=== PATIENT | female | born 1975 | race Caucasian/White ===

== ENCOUNTER 2018-05-23 11:49 | Emergency (ER) | payer MEDICAID, SELFPAY ==
[2018-05-23 11:51] VITALS: BP 138/87; PULSE 109; RESP 16; TEMP 36.3; O2SAT 99; BMI 34.8
--- NOTE | 2018-05-23 13:43 | ED.VISSUMM ---
- ER Visit Summary Date of Service: 05/23/18 Chief Complaint: [Discomfort and swelling to the left foot] History of Present Illness: The patient is a 43 F [presents the emergency department with discomfort to her left foot that she noticed today. Patient states that she woke up and her foot did not feel quite right. Patient states that she noticed some swelling over the dorsal lateral aspect of the foot. Patient denies any trauma to it. She denies any chest pain or shortness of breath.] Physical Examination: Left foot-patient has some soft tissue swelling noted between the fourth and fifth MTP joints. There is no ecchymosis or bruising. There is no obvious deformity. There is no erythema or warmth noted. Patient neurovascular intact.] Test Results: [X-rays of left foot showed no fractures only a calcaneal spur.] Emergency Department Course and Treatment: [None indicated] Treatment Plan: [Patient advised to use ibuprofen or Tylenol at home as needed for discomfort and she states that she has Percocet at home for pain. Disposition: [Discharged home in stable condition. Patient advised to follow-up with primary care physician 5-7 days.] Impression;] right foot swelling-suspect contusion or spontaneous hematoma This note was generated with [employer] dictation software. It may contain incorrect words, spelling, and punctuation that were not noted in review of the chart prior to signing ED Disposition - Plan for ED Patient: Chief Complaint: Lower Extremity Injury Referrals: Osiel Golden MD [Primary Care Provider] -
--- NOTE | 2018-05-23 13:46 | ED.DEP ---
ED Disposition - Plan for ED Patient: Chief Complaint: Lower Extremity Injury Instructions: ED Contusion Foot Referrals: Osiel Golden MD [Primary Care Provider] - 5-7 Days
== END 2018-05-23 14:10 | disposition home or self-care (01) ==
PROVIDERS: Emergency Provider Emergency Medicine; Family Provider Family Medicine; PCP Family Medicine
DX: S90.32XA Contusion of left foot, initial encounter (principal); X58.XXXA Exposure to other specified factors, initial encounter; Y93.9 Activity, unspecified; Y92.9 Unspecified place or not applicable; M54.9 Dorsalgia, unspecified; Z79.82 Long term (current) use of aspirin; Z79.899 Other long term (current) drug therapy; Z72.0 Tobacco use
CPT/HCPCS: 73630; 99282

== ENCOUNTER 2019-01-10 00:57 | Emergency (ER) | payer MEDICAID, SELFPAY ==
[2019-01-10] VITALS (10 sets, daily range): BP systolic 101–121; BP diastolic 54–70; PULSE 76–101; RESP 16–20; TEMP 36.1–36.9; O2SAT 90–97; BMI 36.1
--- NOTE | 2019-01-10 02:19 | RAD_ITS ---
STUDY: X-RAY CHEST REASON FOR EXAM: Female, 43 years old. Cough, chills. TECHNIQUE: PA and lateral chest. COMPARISON: None. FINDINGS: The lungs are clear and expanded. There is no demonstrated pleural abnormality. Normal size heart. Normal mediastinum and gracy. Normal visualized pulmonary arteries. Normal visualized aortic arch and descending thoracic aorta. Normal visualized thoracic spine. Normal visualized ribs, clavicles, and shoulders. Surgical clips base of the neck on the right. There is no demonstrated abnormality of the visualized soft tissue structures of the upper abdomen. RAD/Chest PA and Lateral IMPRESSION: No acute cardiopulmonary disease. Electronically Signed: Erwin Lowry MD at 3:28 EDT , Service support ,
[2019-01-10] MEDS: Albuterol 2.5 MG/3 ML VIAL.NEB. INHALATION (02:36)
[2019-01-10] MEDS: MethylPREDNISolone 125 MG/2 ML Vial IV (02:36)
[2019-01-10] MEDS: proMETHazine 25 MG/ML Syringe 12.5 MG IV (02:36)
[2019-01-10] MEDS: Ipratropium/Albuterol Sulfate 3 ML AMPUL.NEB INHALATION (02:36)
[2019-01-10 02:37] LABS: Absolute Lymphocyte Count 2.72 X10^3/ul (0.83-4.51); Absolute Neutrophil Count 3.9 X10^3/uL (2.0-7.7); Basophil# 0.06 X10^3/uL; Basophil% 0.8 % (0-1); Eosinophils% 1.3 % (0-5); Hematocrit 43.9 % (37-47); Hemoglobin 14.9 g/dl (12.0-15.0); Lymphocyte # 2.72 X10^3/ul (4.0); Lymphocyte % 35.1 % (19-41); Mean Corp Hgb Conc 33.9 g/gl (32-36); Mean Corpuscular Hgb 30.1 pg (27.0-32.0); Mean Corpuscular Volume 88.7 fL (81-99); Mean Platelet Vol. 10.5 fl (6.2-12.0); Monocyte# 0.93 X10^3/uL; Neutrophil # 3.92 X10^3/uL (2.7-7.7); Neutrophil % 50.5 % (47-70); POSITIVE COUNT NO; POSITIVE DIFFERENTIAL NO; POSITIVE MORPHOLOGY NO; Platelet Count 194 K/mm3 (150-450); RBC Distribution Width CV 13.2 % (11.6-14.6); RBC Distribution Width SD 42.7 fl (35.1-43.9); Red Blood Count 4.95 M/mm3 (4.2-5.4); White Blood Count 7.8 K/mm3 (4.4-11.0)
[2019-01-10 02:50] LABS: Anion Gap 6 (5-15); BUN 9 mg/dL (7-18); BUN/Creat Ratio 10.6 RATIO (10-20); Calcium,Total 8.3 mg/dL (8.5-10.1); Chloride 109 mmol/L (98-107); Creatinine, Serum 0.85 mg/dL (0.55-1.02); EST Glomerular Filtration Rate 78 mL/min (>60); Est Glom Filt Rate - Afr Amer 94 mL/min (>60); Estimated Creatinine Clearance 80.71 ml/min; Glucose 109 mg/dL (74-106); Sodium Level 138 mmol/L (136-145)
--- NOTE | 2019-01-10 04:30 | ED.VISSUMM ---
- ER Visit Summary Date of Service: 01/10/19 Chief Complaint: Fever, sore throat History of Present Illness: The patient is a 43 F who presents with a fever and sore throat. She is been sick for about 3 days. She has had a temperature up to 101. She complains of shortness of breath, nonproductive cough, sore throat, muscle and joint aches. She had a rash over her chest which is since resolved. No vomiting or diarrhea. She does have a history of asthma and COPD. Physical Examination: Afebrile vitals normal. When sleeping she did desaturate to 90% and was briefly placed on nasal cannula. Moist mucous membranes Heart regular rate and rhythm She has diminished air exchange and diffuse wheezing throughout all lung campos Abdomen soft and nontender Test Results: Rapid influenza negative. Two-view chest x-ray shows no acute process. CBC BMP unremarkable. Emergency Department Course and Treatment: She was given albuterol and Atrovent aerosols. She reports a history of nausea with albuterol so was given Phenergan. She was also given IV Solu-Medrol. With ambulation she maintained oxygen saturation of 92-94%. She is resting comfortably on reevaluation. She is still wheezing but air exchange is improved. Patient will be placed on oral prednisone and doxycycline and discharged. Treatment Plan: [] Disposition: Discharge Impression: COPD exacerbation This note was generated with [employer] dictation software. It may contain incorrect words, spelling, and punctuation that were not noted in review of the chart prior to signing ED Disposition - Plan for ED Patient: Referrals: Osiel Golden MD [Primary Care Provider] -
--- NOTE | 2019-01-10 04:32 | ED.DEP ---
ED Disposition - Plan for ED Patient: Instructions: ED COPD Flare Prescriptions: predniSONE tablet 60 mg PO DAILY #15 tab Doxycycline 100 mg PO BID #20 cap Referrals: Osiel Golden MD [Primary Care Provider] -
== END 2019-01-10 04:50 | disposition home or self-care (01) ==
PROVIDERS: Emergency Provider Emergency Medicine; Family Provider Family Medicine; PCP Family Medicine
DX: J44.1 Chronic obstructive pulmonary disease with (acute) exacerbation (principal); Z72.0 Tobacco use
CPT/HCPCS: 71046; 80048; 85025; 87804; 94640; 96374; 96375; 99284; A4216

== ENCOUNTER 2019-01-24 21:39 | Emergency (ER) | payer MEDICAID, SELFPAY ==
[2019-01-10 00:58] VITALS: BMI 36.1
[2019-01-24 21:40] VITALS: BP 121/74; PULSE 101; RESP 18; TEMP 36.7; O2SAT 98; BMI 36.1
--- NOTE | 2019-01-24 23:45 | ED.DCSUM_ITS ---
- ER Visit Summary Date of Service: 01/24/19 Chief Complaint: Abscess History of Present Illness: The patient is a 43 F who presents with an abscess to her left lower abdomen that has been getting worse over the past week. Patient states she had a doctor's appointment yesterday but forgot to mention it to her doctor. Patient states the pain feels like it is hot and stinging. Patient denies any discharge or drainage. Patient denies any fevers or chills. Patient states the pain is worse with any palpation to the area and also worse when she sits upright. Physical Examination: Vital signs are stable. Patient is afebrile. Patient is in no acute distress. Skin is warm and dry. There is edema, erythema, and tenderness over the left lower abdomen. There are 2 fluctuant areas noted. There is no active discharge or drainage. Abdomen is otherwise soft and nontender. Bowel sounds are normal. Oral mucosa is pink and moist. Neck is supple. Trachea is midline. There is no JVD noted. Cranial nerves II through XII are intact. There are no focal motor or sensory deficits noted. Emergency Department Course and Treatment: The area was cleaned and prepped in a sterile manner. The area was anesthetized 1% plain lidocaine locally. The area was incised with an 11 blade scalpel using 2 cruciate incisions. Moderate amount of purulent drainage was expressed. Patient tolerated the procedure well. Wound was left open and irrigated. Patient was given a prescription for doxycycline. Patient was instructed to follow-up with her primary care physician in 5 to 7 days for recheck. Patient understood and was agreeable with the plan. All questions were answered. Disposition: Discharge home Impression: Abdominal wall abscess This note was generated with [employer] dictation software. It may contain incorrect words, spelling, and punctuation that were not noted in review of the chart prior to signing ED Disposition - Plan for ED Patient: Disposition: Home or Assisted Living Diagnosis: Abdominal wall abscess Instructions: ED Abscess IandD Prescriptions: Doxycycline 100 mg PO BID #20 cap Referrals: Osiel Golden MD [Primary Care Provider] - 5-7 Days
== END 2019-01-25 00:37 | disposition home or self-care (01) ==
PROVIDERS: Emergency Provider Emergency Medicine; Family Provider Family Medicine; PCP Family Medicine
DX: L02.211 Cutaneous abscess of abdominal wall (principal); E66.9 Obesity, unspecified; Z90.49 Acquired absence of other specified parts of digestive tract; F17.200 Nicotine dependence, unspecified, uncomplicated
CPT/HCPCS: 10060; 99282